=== PATIENT | female | born 1975 | race Caucasian/White ===

== ENCOUNTER → 2017-09-01 | Outpatient (CLI) | payer BC | END | disposition home or self-care (01) | LOC: C.PATHSPEC 15:51 | PROVIDERS: ATTEND Obstetrics & Gynecology | DX: N92.0 Excessive and frequent menstruation with regular cycle (principal) ==

== ENCOUNTER → 2017-09-24 | Day surgery (SDC) | payer BC, OTHER ==
[2017-09-16 14:13] VITALS: Ht 170.2 cm; Wt 81.8 kg
[~2017-09-24] VITALS: Ht 170.2 cm; Wt 81.8 kg
[~2017-09-24] MED LIST: ACETAMINOPHEN 1000 MG/100 ML IV IV ONE; ATROPINE SULFATE 0.1 MG/ML 5ML SYR IV PRN; CETI10TA84 PO; DEXAMETHASONE SOD INJ 4 MG/ML VIAL ONE; DIPH25CA65 PO; EpHEDrine SULFATE INJ 50 MG/ML AMP IV PRN; FENTANYL CITRATE INJ 50 MCG/1 ML 2 ML VIAL IV PRN; FENTANYL CITRATE INJ 50 MCG/1 ML 2 ML VIAL ONE; HYDROmorphone INJ 1 MG/ML SYR IV PRN; KETOROLAC TROMETHAMINE 30 MG/ML VIAL ONE; LACTATED RINGER'S 1000ML 1,000 ML IV SCH; LANS15CA6 PO; LIDOCAINE 2% 20 MG/ML 5ML SYR IV ONE; LIDOCAINE HCL 2% 2 ML VIAL (20MG/ML) ONE; MIDAZOLAM HCL 1 MG/ML 2ML VIAL ONE; ONDANSETRON INJ 2 MG/ML 2 ML VIAL IV PRN; ONDANSETRON INJ 2 MG/ML 2 ML VIAL ONE; OXYCODONE/ACETAMINOPHEN 5-325 TAB PO PRN; PROMETHAZINE HCL INJ 12.5 MG in SODIUM CHLORIDE 0.9% 50ML 50 ML IV PRN; PROMETHAZINE HCL INJ 25 MG in SODIUM CHLORIDE 0.9% 50ML 50 ML IV PRN; PROPOFOL IV EMULSION 10 MG/ML 20 ML VIAL IV ONE; RANITIDINE PO; SODIUM CHLORIDE 0.9% 1000ML 1,000 ML IV SCH
--- NOTE | 2017-09-24 08:00 | History & Physical Bridge - [place] ---
H&P Re-Evaluation Bridge Note: I have examined the patient, reviewed the History & Physical and in the interval since the performance of the History & Physical I have noted the following changes of clinical significance: No changes noted
--- NOTE | 2017-09-24 08:46 | [facility] Post Operative Brief Note ---
Immediate Operative Summary Operative Date Sep 24, 2017. Pre-Operative Diagnosis Menorrhagia Post-Operative Diagnosis same Procedure(s) Performed Dilatation And Curettage, Hysteroscopy,Endometrial Ablation Surgeon Dr Martinez Boiler House Inspector Surgeon(s) none Estimated Blood Loss 5ml Findings Normal appearing uterine cavity, bilateral tubal ostia visualized. Uterus sounded 9cm, cervix 4cm, cavity length 5cm. Width 4.7cm. Power 129w. Time [id number]. Specimens A) endometrial curettings Drains Bladder emptied prior to procedure Anesthesia general Complication(s) None Disposition Recovery Room / PACU
--- NOTE | 2017-09-24 09:05 | Discharge Instructions-SurgCtr ---
Discharge Instructions Date of Service Sep 24, 2017. Visit Reason for Visit: Menorrhagia Discharge Discharge Diagnosis / Problem: menorrhagia Discharge Goals Goal(s): Diagnostic testing, Therapeutic intervention Activity Recommendations Activity Limitations: per Instructions/Follow-up section Anesthesia . Post Anesthesia Instructions: If you have had General Anesthesia or IV Sedation: * Do not drive today. * Resume driving when surgeon permits. * Do not make important decisions or sign legal documents today. * Call surgeon for: 1. Temperature elevations greater than 101 degrees F. 2. Uncontrollable pain. 3. Excessive bleeding. 4. Persistent nausea and vomiting. 5. Medication intolerance (nausea, vomiting or rash). * For nausea and vomiting use only clear liquids such as: tea, soda, bouillon until nausea subsides, then gradually increase diet as tolerated. * If you have any concerns or questions, call your surgeon's office. If physician is unavailable and it is an emergency, call 911 or go to the nearest emergency room. . Instructions / Follow-Up Instructions / Follow-Up ACTIVITY RECOMMENDATIONS: * Avoid tampons, douching, hot tubs, pools, and intercourse until bleeding has stopped. * May shower as usual. * No strenuous activity for 24-48 hours. After 24-48 hours, you may do anything you feel like doing (driving and sports are okay). SPECIAL CARE INSTRUCTIONS: Special Diet: * Mild nausea may occur in the immediate post-operative period. * Take clear liquids such as tea, cola or bouillon until all nausea has subsided; you may then resume your normal diet. Special Care: * Light bleeding and vaginal spotting can last from a few days to 3-4 weeks. Call your doctor if bleeding becomes heavier than the heaviest part of your period. * Check your temperature twice a day for one week. If it goes above 100.4 degrees Fahrenheit (38.0 Celsius), notify your doctor. * Call your doctor's office for an appointment for 6 weeks after your surgery. FOLLOW-UP VISIT: Call your doctor's office for an appointment for 6 weeks after your surgery. Diet Recommendations Home Diet: resume previous diet Procedures Procedures Performed: Dilatation And Curettage, Hysteroscopy,Endometrial Ablation Pending Studies Studies pending at discharge: yes List of pending studies: D&C Medical Emergencies . Who to Call and When: Medical Emergencies: If at any time you feel your situation is an emergency, please call 911 immediately. . Non-Emergent Contact Non-Emergency issues call your: Primary Care Provider, High Pressure Operator . . "Provider Documentation" section prepared by Ngozi Martinez. .
--- NOTE | 2017-09-24 09:06 | OPERATIVE REPORT ---
DATE OF OPERATION: 09/24/2017 PREOPERATIVE DIAGNOSIS: Menorrhagia. POSTOPERATIVE DIAGNOSIS: Same. PROCEDURES PERFORMED: Dilation and curettage, hysteroscopy and endometrial ablation with NovaSure device. SURGEON: Ngozi Martinez DO. VICE PRESIDENT OF HUMAN RESOURCES: None. ESTIMATED BLOOD LOSS: 5 mL. FINDINGS: Normal appearing uterine cavity with bilateral tubal ostia visualized. Uterus sounded to 9 cm, cervix 4 cm, cavity length 5 cm with a 4.7 cm, power 129 blanco, time 1 minute 13 seconds. SPECIMENS: Endometrial curettings. DRAINS: Bladder emptied prior to procedure. ANESTHESIA: General. COMPLICATIONS: None. DISPOSITION: Stable and good to recovery area. INDICATIONS FOR PROCEDURE: The patient is a 41-year-old G4, P2-0-2-2 with heavy menses. This gotten heavier and heavier over the past 2 years lasting approximately 7 days with 3-4 days of heavy bleeding and passing large clots. She has tried Mirena that helped with the bleeding but had many additional symptoms, bloating, breast tenderness and had the IUD removed. She has not tried other hormonal methods and is not willing to. She has tried high dose NSAIDs, this helped somewhat, but not enough. She now desires permanent treatment. We had discussed after endometrial ablation and plans for a vasectomy. Will use barrier methods until that time. DESCRIPTION OF PROCEDURE: The patient was seen in the preoperative holding area where risks, benefits, alternatives to surgery were reviewed. She elected to proceed with the case, all questions were answered. She had previously signed informed consent under no duress in the office. The patient was taken to the operating room where general anesthesia was administered. She was prepared and draped in the usual sterile fashion with feet in candy cane stirrups. Timeout was confirmed. Bladder was drained. A weighted speculum was placed in the vagina. The cervix was visualized and the anterior lip was grasped with a single tooth tenaculum. The uterus was sounded. The above noted findings. The cervix was then sequentially dilated to admit the hysteroscope. The scope was inserted. The above noted findings were seen. The scope was withdrawn and the NovaSure device was inserted through the cavity. The device was tested and then deployed for a total of 1 minute 13 seconds. The NovaSure device was removed at the completion of the burn. The scope was reinserted and a charred endometrium was seen. All instruments were then removed from the vagina. The patient tolerated the procedure well. She will be taken to the recovery room in stable and good condition. Excellent hemostasis was observed. All sponge and instrument counts were correct at the conclusion of the case, x2. I attest to the content of the Intraoperative Record and any orders documented therein. Any exception s are noted below.
[2017-09-24 09:32] VITALS: TEMP 37.1
[2017-09-24 09:57] VITALS: BP 138/95; PULSE 86; O2SAT 99
--- NOTE | 2017-09-24 09:57 | Anesthesia Progress Nt - [facility] ---
Anesthesia Post Op Note Date & Time Sep 24, 2017 at 09:57 Vital Signs Pain Intensity: 0 Vital Signs Past 12 Hours Date Time Temp Pulse Resp B/P (MAP) Pulse Ox O2 Delivery O2 Flow Rate FiO2 09/24/17 09:32 37.1 78 16 136/89 (105) 99 Room Air 09/24/17 09:26 80 14 97 09/24/17 09:26 80 14 09/24/17 09:25 146/100 09/24/17 09:22 81 20 99 09/24/17 09:22 82 20 09/24/17 09:21 73 16 100 09/24/17 09:21 74 16 09/24/17 09:21 36.8 79 18 129/97 97 Room Air 09/24/17 09:20 129/97 09/24/17 09:18 75 14 98 09/24/17 09:18 77 14 09/24/17 09:17 83 17 09/24/17 09:17 82 17 97 09/24/17 09:16 86 16 09/24/17 09:16 89 16 97 09/24/17 09:15 139/96 09/24/17 09:12 79 18 98 09/24/17 09:12 80 18 09/24/17 09:11 85 21 98 09/24/17 09:11 88 21 09/24/17 09:10 136/97 09/24/17 09:08 141/97 09/24/17 09:07 79 20 100 09/24/17 09:07 78 20 09/24/17 09:06 76 15 09/24/17 09:06 76 15 100 09/24/17 09:05 139/104 09/24/17 09:01 79 13 09/24/17 09:01 80 13 100 09/24/17 09:00 131/100 09/24/17 08:59 84 18 09/24/17 08:59 85 18 100 09/24/17 08:55 145/99 09/24/17 08:54 36.8 82 18 140/99 99 Mask 10 09/24/17 08:54 86 17 140/99 100 09/24/17 08:54 86 17 09/24/17 07:11 37.2 89 18 129/89 (102) 98 Room Air Notes Mental Status: alert / awake / arousable, participated in evaluation Pt Amnestic to Procedure: Yes Nausea / Vomiting: adequately controlled Pain: adequately controlled Airway Patency, RR, SpO2: stable & adequate BP & HR: stable & adequate Hydration State: stable & adequate Anesthetic Complications: no major complications apparent
== END | disposition home or self-care (01) ==
LOC: X.SURG 06:32
PROVIDERS: ATTEND Obstetrics & Gynecology
DX: N92.0 Excessive and frequent menstruation with regular cycle (principal); N94.6 Dysmenorrhea, unspecified; K21.9 Gastro-esophageal reflux disease without esophagitis; E66.9 Obesity, unspecified; N39.3 Stress incontinence (female) (male)

== ENCOUNTER → 2018-04-21 | Outpatient (CLI) | payer OTHER ==
[~2018-04-21] MED LIST changes: -ACETAMINOPHEN 1000 MG/100 ML IV IV ONE; -ATROPINE SULFATE 0.1 MG/ML 5ML SYR IV PRN; -DEXAMETHASONE SOD INJ 4 MG/ML VIAL ONE; -EpHEDrine SULFATE INJ 50 MG/ML AMP IV PRN; -FENTANYL CITRATE INJ 50 MCG/1 ML 2 ML VIAL IV PRN; -FENTANYL CITRATE INJ 50 MCG/1 ML 2 ML VIAL ONE; -HYDROmorphone INJ 1 MG/ML SYR IV PRN; -KETOROLAC TROMETHAMINE 30 MG/ML VIAL ONE; -LACTATED RINGER'S 1000ML 1,000 ML IV SCH; -LIDOCAINE 2% 20 MG/ML 5ML SYR IV ONE; -LIDOCAINE HCL 2% 2 ML VIAL (20MG/ML) ONE; -MIDAZOLAM HCL 1 MG/ML 2ML VIAL ONE; -ONDANSETRON INJ 2 MG/ML 2 ML VIAL IV PRN; -ONDANSETRON INJ 2 MG/ML 2 ML VIAL ONE; -OXYCODONE/ACETAMINOPHEN 5-325 TAB PO PRN; -PROMETHAZINE HCL INJ 12.5 MG in SODIUM CHLORIDE 0.9% 50ML 50 ML IV PRN; -PROMETHAZINE HCL INJ 25 MG in SODIUM CHLORIDE 0.9% 50ML 50 ML IV PRN; -PROPOFOL IV EMULSION 10 MG/ML 20 ML VIAL IV ONE; -SODIUM CHLORIDE 0.9% 1000ML 1,000 ML IV SCH
--- NOTE | 2018-04-22 15:44 | MAMMOGRAPHY REPORT ---
BILATERAL FIRST EVER DIGITAL SCREENING MAMMOGRAM TOMOSYNTHESIS WITH CAD: 04/21/2018 CLINICAL HISTORY: Routine screening. Baseline exam. TECHNIQUE: The study was acquired using full field digital technology and interpreted from soft copy. Breast tomosynthesis in addition to standard 2D mammography was performed. Current study was also ev aluated with a Computer Aided Detection (CAD) system. COMPARISON: No prior exams were available for comparison. BREAST COMPOSITION: The tissue of both breasts is heterogeneously dense, which may obscure small mass es. FINDINGS: No suspicious masses, calcifications, or areas of architectural distortion are noted in either breast . IMPRESSION: ACR BI-RADS CATEGORY 1: NEGATIVE There is no mammographic evidence of malignancy. A 1 year screening mammogram is recommended.( [id number]) The patient will receive written notification of the results. Some breast cancers are not detected with mammography. A negative mammographic report should not denae y biopsy if a clinically suggestive mass is present. Wilda Harris M.D. ah/:04/21/2018 15:50:38 [employer] Efficient Site Manager: RT Shira(Mary)(M), [facility] letter sent: Normal 1/2 BI-RADS Code: ACR BI-RADS Category 1: Negative
== END | disposition home or self-care (01) ==
LOC: C.MAMM 14:29
PROVIDERS: ATTEND Obstetrics & Gynecology
DX: Z12.31 Encounter for screening mammogram for malignant neoplasm of breast (principal)